=== PATIENT | male | born 1935 | race Caucasian/White ===

== ENCOUNTER 2017-01-16 04:37 | Inpatient (IN) | payer MEDICARE, BC ==
--- NOTE | ~2017-01-16 | HP ---
History And Physical [address] [place]. [address] NAME: ANNY LYMAN : 37 STATUS : ADM IN [facility]#: [id number] AGE: 81 ADM/REG DATE : 01/16/17 MR#: [id number] REPORT SERV DATE: 01/16/17 DICTATED BY: ABRAHAM TOMAS DATE: 01/16/17 REPORT STATUS : Draft TRANSCRIBED BY: MODL DATE: 01/16/17 DATE OF ADMISSION: 01/16/2017 CHIEF COMPLAINT: Chest pain. HISTORY OF PRESENT ILLNESS: This is an 81-year-old gentleman with history of coronary artery disease, hypertension, hyperlipidemia, and chronic kidney disease presenting with chest pain. The patient reports that the chest pain is actually a feeling of flutters and palpitations. The patient does have baseline coronary artery disease with angina, but since about a week ago the patient started having funny sensations with palpitations and flutters. The patient follows with Dr. Rojas and he actually went in to see him and had an echocardiogram done at the office. The patient has a followup appointment with Dr. Rojas on 01/21/2017, which is five days from now, but the patient was called by the Cardiology office and was told that his ejection fraction had went down to 35% whereas his baseline has been 50%. The patient was prescribed to take Lasix and again is to have a followup appointment with Dr. Rojas in the next five days. Upon further questioning, the patient does report that he has been experiencing increasing bilateral lower extremity edema without acute shortness of breath, but then again the patient is not very mobile and he has not exerted himself enough to know if he would be short of breath with exertion. In any case, the patient decided to come to the ER for further evaluation and care as he had another episode of palpitations and flutters that lasted a lot longer this time. In the ER, the patient was found to be afebrile and hemodynamically stable. EKG in the ER did show the patient was in an AFib, which is a new onset for him. Lab evaluation in the ER was fairly benign except for a creatinine of 1.78. Internal Medicine consultation was requested for admission of the patient for further evaluation and care. REVIEW OF SYSTEMS: The patient denies any fevers or chills. Also, 14-point review of systems reviewed and negative other than mentioned above. MEDICATIONS: The list is still pending at this time. PAST MEDICAL HISTORY: 1. Coronary artery disease with drug-eluting stent placed in the past. 2. Hypertension. 3. Hyperlipidemia. 4. Chronic kidney disease, which apparently is a new working diagnosis. 5. Newly diagnosed congestive heart failure with an echocardiogram that was done in the office last week. PAST SURGICAL HISTORY: 1. Left knee replacement. 2. Breast lumpectomy. FAMILY HISTORY: Heart diseases. History And Physical [address] [address] NAME: ANNY LYMAN : 37 STATUS : ADM IN [facility]#: [id number] AGE: 81 ADM/REG DATE : 01/16/17 MR#: [id number] REPORT SERV DATE: 01/16/17 DICTATED BY: ABRAHAM TOMAS DATE: 01/16/17 REPORT STATUS : Draft TRANSCRIBED BY: KRIS DATE: 01/16/17 SOCIAL HISTORY: The patient does not smoke, drink alcohol, or use any illicit drugs. The patient lives at home with his . The patient has been active in the past, but he now lives a fairly sedentary life. PHYSICAL EXAMINATION: VITAL SIGNS: Temperature 97.6, blood pressure 119/70, pulse 91, respiratory rate is 18, saturating 98% on room air. GENERAL: The patient is alert and oriented x3 with no focal neurologic deficits. The patient is awake, does not appear to be in acute distress, and he is cooperative. NECK: No JVD. No lymphadenopathy. Normal thyroid. CHEST: No midline sternotomy scar and no tenderness to palpation. LUNGS: Clear to auscultation bilaterally with normal respiratory effort on room air. CARDIOVASCULAR: The patient has irregularly irregular rate and rhythm, but otherwise no murmurs, rubs, or gallops. PMI is nondisplaced. ABDOMEN: Soft, nontender, with active bowel sounds and no organomegaly. EXTREMITIES: The patient has 2+ bilateral lower extremity edema. Otherwise, normal distal pulses and no calf tenderness. SKIN: Clean, dry, warm, and intact. LABORATORY DATA: Sodium is 139, potassium 4.3, chloride 104, BUN 15, creatinine 1.78, glucose 131, calcium 9.6, magnesium 2.0. White blood cell count is 8.4, hemoglobin 12.6, platelets 236. INR is 1.2. Troponin is less than 0.02. EKG is personally interpreted and it shows an AFib in a controlled rhythm with ventricular rate around 90s. Otherwise, no acute ischemic changes. ASSESSMENT: This is an 81-year-old gentleman with history of coronary artery disease, hypertension, hyperlipidemia, and chronic kidney disease, now presenting with new-onset atrial fibrillation and systolic congestive heart failure exacerbation. 1. New-onset atrial fibrillation, rate controlled currently. 2. Systolic congestive heart failure, with recent echocardiogram done as an outpatient showing ejection fraction of 35%. The patient is in mild exacerbation with bilateral lower extremity edema. 3. Chronic kidney disease, apparently a working diagnosis. The patient does not have an established baseline, but his creatinine today is 1.78. 4. Hypertension. 5. Hyperlipidemia. 6. Coronary artery disease. PLAN: My plan is to admit the patient under telemetry monitoring. The patient will be given IV Lasix diuresis. In's and out's will be closely monitored as well as daily weights and renal function. For the AFib, since he is already rate controlled, I will simply monitor him. I will check TSH and serial troponins, and I will continue the heparin drip that was already started in the ER. For chronic kidney disease, I will monitor his renal function on daily basis. Otherwise, for the rest of stable past medical conditions including hypertension, hyperlipidemia, et al., I will continue home medications. Standard DVT History And Physical [address] [address] NAME: ANNY LYMAN : 37 STATUS : ADM IN [facility]#: [id number] AGE: 81 ADM/REG DATE : 01/16/17 MR#: [id number] REPORT SERV DATE: 01/16/17 DICTATED BY: ABRAHAM TOMAS DATE: 01/16/17 REPORT STATUS : Draft TRANSCRIBED BY: MODAntwon DATE: 01/16/17 prophylaxis. The patient is full code at this time. [facility]/KRIS Abraham Tomas MD / [id number] CC: MD AYAN Rodriguez CHELSEY
--- NOTE | ~2017-01-16 | DS ---
Discharge Summary [facility] [address] [facility] [place]. [address] NAME: ANNY LYMAN : 37 STATUS : DIS IN PAT#: [id number] AGE: 81 ADM/REG DATE : 01/16/17 MR#: [id number] REPORT SERV DATE: 01/23/17 DICTATED BY: JR. BARRIOS WILLIAM JOHN DATE: 01/22/17 REPORT STATUS : Draft TRANSCRIBED BY: MODL DATE: 01/22/17 ADMISSION DATE: 01/16/2017 DISCHARGE DATE: 01/22/2017 DISCHARGE DIAGNOSES: Include: 1. New onset atrial fibrillation. 2. Acute systolic heart failure with ejection fraction of 35%. 3. Acute kidney injury with chronic kidney disease. 4. Hypertension. 5. Hyperlipidemia. 6. History of coronary artery disease. 7. Obesity with body mass index of 32.2. OPERATIONS/PROCEDURES AND TREATMENTS: Include: 1. Chest x-ray done 01/16/2017 which showed subpleural pulmonary fibrosis with no superimposed airspace issues. 2. Cardiac catheterization done 01/21/2017 showed left ventricular end-diastolic pressure of 16 with an ejection fraction of 35%, widely patent LAD, normal left main circumflex and right coronary arteries. 3. Transesophageal echocardiogram with cardioversion done 01/21/[address] Buckley. Echocardiogram showed an ejection fraction of 40% and mildly decreased right ventricular systolic function, mild atrial and tricuspid regurgitation, trace aortic and pulmonic regurgitation. No thrombus in the left atrial appendage with successful cardioversion and reversion to sinus rhythm. DISCHARGE MEDICATIONS: Include: 1. Aspirin 81 mg orally daily. 2. Coreg 6.25 mg orally twice a day. 3. Coenzyme Q 100 mg orally daily. 4. Lovenox 100 mg subcu q.12 hours until INR is greater than 2. 5. Lasix 20 mg orally daily. 6. [place]-3 fatty acid 1200 mg orally daily. 7. Nexium 40 mg orally daily. 8. Coumadin 5 mg orally daily. 9. Nitroglycerin 0.4 mg sublingually as needed. 10.Amiodarone 400 mg orally twice a day for a week, then 200 mg twice a day for two weeks, then 200 mg daily. CONSULTING PHYSICIANS: Include Dr. Bebo Paula of Nephrology and Dr. Baron Rodriguez of Cardiology. HOSPITAL COURSE: The patient is an 81-year-old gentleman who presented to the emergency room 01/16/2017 with complaint of chest pain. The chest pain actually felt like flutters and palpitations. He does have a history of coronary disease with angina but started having funny sensations and flutter starting one week prior. He follows with Dr. Rojas, went to see him, and had an echocardiogram done in his office. He has a followup appointment with Discharge Summary [address] [address] NAME: ANNY LYMAN : 37 STATUS : DIS IN PAT#: [id number] AGE: 81 ADM/REG DATE : 01/16/17 MR#: [id number] REPORT SERV DATE: 01/23/17 DICTATED BY: JR. BARRIOS WILLIAM JOHN DATE: 01/22/17 REPORT STATUS : Draft TRANSCRIBED BY: KRIS DATE: 01/22/17 Dr. Rojas on 01/21/2017, but apparently, the echo showed an ejection fraction of 35% with a baseline of 50%. He was given Lasix without success and subsequently presented to the emergency room. PHYSICAL EXAMINATION: VITAL SIGNS: On initial exam, his temperature 97.6, blood pressure 119/70, heart rate 91, and respiratory rate of 18. LUNGS: Clear to auscultation. HEART: Irregularly irregular. No murmur, gallop, or rub. Point of maximal impulse is nondisplaced. EXTREMITIES: He had 2+ bilateral pitting edema. BUN and creatinine were 15 and 1.8. INR was 1.2, and troponin was 0.02. EKG showed atrial fibrillation with controlled ventricular response without acute ST-T wave changes. The patient was admitted to the hospital for new onset atrial fibrillation. He was seen in consultation by Dr. Rodriguez of Cardiology. He was placed on IV heparin, IV Lasix, and underwent cardiac catheterization without finding of critical coronary disease. The patient's diuretics were gradually transitioned to oral. He did have some increased creatinine prior to the cardiac catheterization, was actually seen by Nephrology. The patient slowly improved his renal function and underwent catheterization as detailed above. The patient was placed on amiodarone eventually and subsequently had a transesophageal echocardiogram with precluding a clot with cardioversion. He continued to improve and was felt to be stable for discharge on 01/22/2017. He will be placed on Lovenox as a bridge for the Coumadin and have followup INR at [facility] on Wednesday and will also follow up with Nephrology as well as his primary care provider, Dr. Delma Ramirez, in one week with a BMP. DISCHARGED DIET: 2 g sodium diet with 1.8 L fluid restriction. ACTIVITY: As tolerated. For discharge exam and laboratory, please see daily progress note. This discharge took 38 minutes for patient encounter, coordination of care, and documentation. JEN/KRIS Baron Barrios Jr, MD / [id number] CC: Discharge Summary [address] [address] NAME: ANNY LYMAN : 37 STATUS : DIS IN PAT#: [id number] AGE: 81 ADM/REG DATE : 01/16/17 MR#: [id number] REPORT SERV DATE: 01/23/17 DICTATED BY: JR. BARRIOS WILLIAM JOHN DATE: 01/22/17 REPORT STATUS : Draft TRANSCRIBED BY: KRIS DATE: 01/22/17 Baron Barrios Jr, MD Chelsey Height
--- NOTE | ~2017-01-16 | CN ---
Consultation Report [facility] [address] [place]. [address] NAME: ANNY LYMAN : 37 STATUS : ADM IN [facility]#: [id number] AGE: 81 ADM/REG DATE : 01/16/17 MR#: [id number] REPORT SERV DATE: 01/16/17 DICTATED BY: BARON ESCOBAR DATE: 01/16/17 REPORT STATUS : Draft TRANSCRIBED BY: MODL DATE: 01/16/17 CARDIOVASCULAR CONSULTATION DATE OF CONSULTATION: 01/16/2017 CHIEF COMPLAINT: Congestive heart failure. HISTORY OF PRESENT ILLNESS: The patient is an 81-year-old patient of my partner, Dr. Barry Rojas. He has a history of ischemic coronary disease with prior LAD stent in 2010. He had a cardiac catheterization about two years ago, which showed patent LAD stent and an EF of 55%. Over the last several weeks to months, he has had progressive symptoms of bilateral lower extremity edema associated with increased dyspnea and shortness of breath. He had an outpatient echocardiogram about four days ago, which showed a new decline in his left ventricular ejection fraction from 55% to 35% with evidence of anteroseptal hypokinesis. He was admitted with worsening symptoms of dyspnea through the emergency room. An EKG showed atrial fibrillation with a rate of 80 to 90 beats per minute. This is a new diagnosis. Laboratory studies were notable for a creatinine of 1.78 and a BNP of 368. The patient has not had much chest discomfort. He has not had any syncope or presyncope. PAST MEDICAL HISTORY: 1. Hypertension. 2. Hypercholesterolemia. 3. Coronary artery disease with previous LAD stenting. 4. Chronic kidney disease. 5. History of knee replacement surgery. SOCIAL HISTORY: He does not smoke or drink alcohol. FAMILY HISTORY: There is a family history of early coronary artery disease. REVIEW OF SYSTEMS: A complete review of systems was obtained, which is negative in detail except as mentioned above in the HPI. PHYSICAL EXAMINATION: BLOOD PRESSURE: 120/70. PULSE: 90 and irregular. RESPIRATIONS: 14. GENERAL: Comfortable in no acute distress. HEENT: Anicteric. No xanthelasma. Lips without cyanosis. NECK: No JVD. Carotids 2+ and symmetric. No carotid bruits. LUNGS: There are crackles at both bases bilaterally. No wheezes. COR: Irregularly irregular. Normal S1 and S2. No murmurs. No rubs. ABD: Soft, nontender, nondistended. Normal bowel sounds. No abdominal bruits. EXT: There is 2+ bilateral lower extremity edema to the knees. Consultation Report [facility] [address] [place]. [address] NAME: ANNY LYMAN : 37 STATUS : ADM IN PAT#: [id number] AGE: 81 ADM/REG DATE : 01/16/17 MR#: [id number] REPORT SERV DATE: 01/16/17 DICTATED BY: BARON ESCOBAR DATE: 01/16/17 REPORT STATUS : Draft TRANSCRIBED BY: KRIS DATE: 01/16/17 SKIN: Warm. Dry. No venous stasis changes. MS: No kyphosis. NEURO/PSYCH: Oriented x3. No anxiety or depression. LABORATORY STUDIES: Potassium of 4.3. Creatinine of 1.78. Hematocrit of 38.5. Troponin of less than 0.02. BNP of 368. EKG: A 12-lead EKG shows atrial fibrillation, rate of 88 beats per minute. Poor R-wave progression. Nonspecific T-wave abnormalities noted. Inferior Q-waves noted. IMPRESSION: Mr. Lyman is an 81-year-old man with a history of prior LAD stenting, now presenting with new atrial fibrillation and new acute on chronic systolic congestive heart failure with a decline in his ejection fraction from 55% to 35% with new anteroseptal hypokinesis noted. I have recommended continuing IV heparin for now. He will receive aspirin 81 mg daily. We will diurese him with IV Lasix. He has a prior intolerance to multiple statins due to myalgias. We will plan for cardiac catheterization on Wednesday with possible percutaneous coronary intervention given his new LV dysfunction, new wall motion abnormality, and symptoms of dyspnea and shortness of breath with prior ischemic coronary disease. If his cardiac catheterization is normal, we will consider a change to Eliquis and perhaps a ANDRES cardioversion the following day. I am not certain whether he will need long-term anti- arrhythmics, but at least for the short term. I will put him on p.o. amiodarone. [facility]ANDT/KRIS Baron Escobar M.D. / [id number] CC: MD AYAN Rodriguez CHELSEY
--- NOTE | ~2017-01-16 | OP ---
Record Of Operation [facility] [address] [place]. [address] NAME: ANNY LYMAN : 37 STATUS : ADM IN [facility]#: [id number] AGE: 81 ADM/REG DATE : 01/16/17 MR#: [id number] REPORT SERV DATE: 01/21/17 DICTATED BY: FAREED SOLORIO DATE: 01/21/17 REPORT STATUS : Draft TRANSCRIBED BY: MODL DATE: 01/21/17 DATE OF PROCEDURE: 01/21/2017 PROCEDURE INDICATION: Atrial fibrillation. PROCEDURE TYPE: Elective ANDRES cardioversion. REFERRING PROVIDER: Barry Rojas M.D. PROCEDURE DESCRIPTION: All questions were answered and informed consent was obtained. Upon successful sedation per Anesthesia, the transesophageal probe was inserted without complication. The salient echocardiographic windows were obtained, with particular attention to the left atrial appendage. Upon clearance of the appendage, the patient was shocked with 200 joules x1 synchronized. The patient successfully converted from atrial fibrillation to sinus rhythm at 65 beats per minute. There were no complications from the procedure. ECHOCARDIOGRAPHIC SUMMARY: 1. Moderately decreased left ventricular systolic function, with an estimated ejection fraction of 40%. 2. Mildly decreased right ventricular systolic function. 3. Mild mitral and tricuspid regurgitation on color Doppler assessment. 4. Trace aortic and pulmonic regurgitation on color Doppler assessment. 5. No thrombus in the left atrial appendage at the time of the study, with decreased velocities (peak approximately 20 cm/sec). VR/KRIS Fareed Solorio MD / [id number] CC: Baron Barrios Jr, MD HEIGHT, CHELSEY
--- NOTE | ~2017-01-16 | CN ---
Consultation Report [facility] [address] [place]. [address] NAME: ANNY LYMAN : 37 STATUS : ADM IN [facility]#: [id number] AGE: 81 ADM/REG DATE : 01/16/17 MR#: [id number] REPORT SERV DATE: 01/17/17 DICTATED BY: STU DE LA CRUZ DATE: 01/17/17 REPORT STATUS : Draft TRANSCRIBED BY: MODL DATE: 01/17/17 NEPHROLOGY CONSULT DATE OF CONSULTATION: 01/17/2017 REASON FOR CONSULT: Chronic kidney disease with acute kidney injury, the patient needs arteriogram. HISTORY OF PRESENT ILLNESS: Mr. Lyman is a very pleasant 81-year-old white male with no previous Nephrology evaluation. Reviewing records shows that his baseline creatinine has previously been around 1.1 to 1.2 since 10/2010. The most recent labs available prior to this admission was a creatinine of 1.1 in 04/2015. He presented yesterday with chest pain and low blood pressure, was found to have new onset atrial fibrillation. Creatinine on presentation was 1.8. Echo has shown an EF of 35% with mild LVH and RVSP of 44 mmHg. He has some anteroseptal hypokinesis. He was given Lasix 40 mg IV q.8 h. and earlier today was found to have a creatinine up to 1.9. He has had 3850 mL of urine output since admission, and had a blood pressure as low as 88/54 last night around 11 p.m. He is scheduled for cardiac catheterization later this week when renal function improves. PAST MEDICAL HISTORY: 1. Chronic kidney disease, baseline creatinine 1.1 to 1.2. 2. Atherosclerotic cardiovascular disease with PCI to the LAD, 2010 with EF 35%. 3. Hypertension, on ARB. 4. Hyperlipidemia. 5. History of left knee replacement without heavy use of OTC NSAIDs. 6. Rheumatoid arthritis followed by Dr. Casiano at [place], intolerant of biologics. MEDICATIONS: On admission included, 1. Aspirin. 2. Baclofen. 3. Coreg 25 mg b.i.d. 4. CoQ10. 5. Nexium. 6. Flaxseed oil. 7. Fish oil. 8. Diovan 80 mg daily. FAMILY HISTORY: Noncontributory. SOCIAL HISTORY: Nonsmoker. , lives in [facility] and is retired arc welder apprentice. REVIEW OF SYSTEMS: Significant for events as per HPI. No previous prostate surgery. Consultation Report [address] [place]. [address] NAME: ANNY LYMAN : 37 STATUS : ADM IN [facility]#: [id number] AGE: 81 ADM/REG DATE : 01/16/17 MR#: [id number] REPORT SERV DATE: 01/17/17 DICTATED BY: STU DE LA CRUZ DATE: 01/17/17 REPORT STATUS : Draft TRANSCRIBED BY: KRIS DATE: 01/17/17 PHYSICAL EXAMINATION: VITAL SIGNS: Temperature 98.9, pulse 95, respirations 20, blood pressure 93/56, 98% saturation on room air. 2058 mL of intake with 3850 mL of output. GENERAL: He is a very pleasant elderly white male who is awake, alert, oriented, and cooperative with the exam. NEURO: Nonfocal. He is in no distress. Ambulating from the bathroom, accompanied by his supportive . Good historian. HEENT: Sclerae without icterus. Conjunctivae not injected. Oropharynx is clear. Mucous membranes are dry. NECK: No JVD. No dyspnea. Bilateral rhonchi on room air. HEART: Rhythm is irregular, rate controlled. 2/6 murmur. ABDOMEN: Obese, soft, nontender, and nondistended. Umbilical hernia is noted. He has had previous right breast surgery. EXTREMITIES: With 1+ bilateral lower extremity edema. Varicose veins are noted. : Deferred. There is no Pinto catheter. PSYCH: Mood and affect are appropriate. MUSCULOSKELETAL: Shows no active process. SKIN: Shows no rash. LABORATORY DATA: Sodium 138, potassium 3.8, bicarb 27, BUN 21, creatinine 1.9. GFR 32, calcium 9.5, magnesium 2.0, albumin 3.6. Liver function test normal. BNP 344. White count 9400 with 4% eosinophilia, hemoglobin 12, platelets 241,000. INR 1.2. ASSESSMENT AND PLAN: Mr. Lyman has chronic kidney disease, baseline creatinine previously 1.1 to 1.2, has now developed worsened renal function in the setting of new onset atrial fibrillation, relative hypotension, coronary artery disease with previous stenting, EF 35%, and rheumatoid arthritis. Likely, his acute kidney injury is multifactorial related to over diuresis and acute tubular necrosis from relative hypotension? Hold ARB and Lasix. We will gently hydrate watching volume status closely. Check bladder scan and urine sodium. Family updated in the room, I agree with treatment plan. Watch labs, supportive care. His baseline creatinine unclear at this point. If renal function improves, would have a low threshold for proceeding with cardiac catheterization later in the week. Group will follow with you. Appreciate consult. JULIANO/KRIS Stu De La Cruz M.D. / [id number] Consultation Report [address] [address] NAME: ANNY LYMAN : 37 STATUS : ADM IN PAT#: [id number] AGE: 81 ADM/REG DATE : 01/16/17 MR#: [id number] REPORT SERV DATE: 01/17/17 DICTATED BY: STU DE LA CRUZ DATE: 01/17/17 REPORT STATUS : Draft TRANSCRIBED BY: KRIS DATE: 01/17/17 CC: MD AYAN Rodriguez CHELSEY
[~2017-01-16 04:37] MED LIST: ASA5GR PO; ASAB PO; ASCRIPTIN PO; CIP5 PO; CO Q-10100 MG PO; COREG; COREG12 PO; COREG25 PO; DIOV160 PO; DIOV80 PO; FISH OIL1200 MG PO; FLAXSEED OIL1000 MG PO; NEXIUM40 PO; NITROSTAT0.4 MG SL; PLAVIX PO; PRAVAC PO; PRAVASTATIN; ROBAXIN
[2017-01-16 04:41] LABS: BASOPHILS 0.2 %; BASOPHILS ABSOLUTE 0.02 10/3/uL (0.0-0.16); EOSINOPHILS 3.5 %; EOSINOPHILS ABSOLUTE 0.29 10/3/uL (0.0-0.53); ER CBC TAT 0 Hrs 05 Mins; HEMATOCRIT 38.5 % (40.0-51.0); HEMOGLOBIN 12.6 g/dL (13.6-17.8); IMMATURE GRANULOCYTES 0.2 %; IMMATURE GRANULOCYTES ABSOLUTE 0.02 10/3/uL (0.0-0.11); LYMPHOCYTES 19.7 %; LYMPHOCYTES ABSOLUTE 1.65 10/3/uL (0.67-4.30); MANUAL DIFF NO %; MEAN CORPUS HGB CONC 32.7 g/dL (32.0-36.0); MEAN CORPUSCULAR HEMOGLOB 29.5 pg (26.0-34.0); MEAN CORPUSCULAR VOLUME 90.2 fL (80-100); MEAN PLATELET VOLUME 10.7 fL (9.2-13.0); MONOCYTES 14.1 %; MONOCYTES ABSOLUTE 1.18 10/3/uL (0.21-1.20); NEUTROPHILS 62.3 %; NEUTROPHILS ABSOLUTE 5.23 10/3/uL (2.02-8.40); PLATELET COUNT 236 10/3/uL (150-400); RBC DISTRIBUTION WIDTH 14.5 % (12.0-16.0); RED CELL COUNT 4.27 10/6/uL (4.7-6.1); WHITE BLOOD CELLS 8.4 10/3/uL (4.5-10.5)
[2017-01-16 04:47] LABS: INTERNATIONAL NORMAL RATI 1.2 UNITS (-); PARTIAL THROMBO TIME 26.9 SEC (22.5-37.2); PROTIME (NOT ORD) 14.9 SEC (12.0-14.5)
[2017-01-16 04:59] LABS: BUN (BLOOD UREA NITROGEN) 15 MG/DL (6-23); CALCIUM, SERUM 9.6 MG/DL (8.5-10.4); CHEST PAIN PROFILE TAT 0 Hrs 23 Mins; CHLORIDE, SERUM 104 MMOL/L (96-112); CO2 (CARBON DIOXIDE) 27 MMOL/L (24-34); CREATININE 1.78 MG/DL (0.70-1.30); GFR AFRICAN AMERICAN 41 ML/MIN (>=60); GFR NON AFRICAN AMERICAN 35 ML/MIN (>=60); GLUCOSE, SERUM 131 MG/DL (60-99); POTASSIUM, SERUM 4.3 MMOL/L (3.5-5.3); SODIUM, SERUM 139 MMOL/L (135-148); TROPONIN I <0.02 NG/ML (<0.05)
[2017-01-16 05:43] LABS: ALBUMIN 3.6 G/DL (3.5-5.0); ALKALINE PHOSPHATASE 65 U/L (45-117); DIRECT BILIRUBIN 0.1 MG/DL (0.0-0.4); INDIRECT BILIRUBIN(NOT ORDER) 0.5 MG/DL (0.1-0.9); SGOT(AST) 17 U/L (5-40); SGPT(ALT) 23 U/L (5-65); TOTAL BILIRUBIN 0.6 MG/DL (0-1.2); TOTAL PROTEIN 7.3 G/DL (6.0-8.5)
[2017-01-16] MEDS ORDERED: LIOR10 PO (08:46)
[2017-01-17 03:37] LABS: BASOPHILS 0.3 %; BASOPHILS ABSOLUTE 0.03 10/3/uL (0.0-0.16); EOSINOPHILS 4.4 %; EOSINOPHILS ABSOLUTE 0.41 10/3/uL (0.0-0.53); HEMATOCRIT 36.6 % (40.0-51.0); IMMATURE GRANULOCYTES 0.2 %; IMMATURE GRANULOCYTES ABSOLUTE 0.02 10/3/uL (0.0-0.11); LYMPHOCYTES 23.9 %; LYMPHOCYTES ABSOLUTE 2.24 10/3/uL (0.67-4.30); MEAN CORPUS HGB CONC 32.8 g/dL (32.0-36.0); MEAN CORPUSCULAR HEMOGLOB 29.5 pg (26.0-34.0); MEAN CORPUSCULAR VOLUME 89.9 fL (80-100); MEAN PLATELET VOLUME 11.2 fL (9.2-13.0); MONOCYTES 16.5 %; MONOCYTES ABSOLUTE 1.54 10/3/uL (0.21-1.20); NEUTROPHILS 54.7 %; NEUTROPHILS ABSOLUTE 5.12 10/3/uL (2.02-8.40); PLATELET COUNT 241 10/3/uL (150-400); RBC DISTRIBUTION WIDTH 14.5 % (12.0-16.0); RED CELL COUNT 4.07 10/6/uL (4.7-6.1); WHITE BLOOD CELLS 9.4 10/3/uL (4.5-10.5)
[2017-01-17 03:42] LABS: MANUAL DIFF NO %
[2017-01-17 03:49] LABS: BUN (BLOOD UREA NITROGEN) 21 MG/DL (6-23); CALCIUM, SERUM 9.5 MG/DL (8.5-10.4); CHLORIDE, SERUM 103 MMOL/L (96-112); CO2 (CARBON DIOXIDE) 27 MMOL/L (24-34); CREATININE 1.94 MG/DL (0.70-1.30); GFR AFRICAN AMERICAN 37 ML/MIN (>=60); GFR NON AFRICAN AMERICAN 32 ML/MIN (>=60); GLUCOSE, SERUM 136 MG/DL (60-99); POTASSIUM, SERUM 3.8 MMOL/L (3.5-5.3); SODIUM, SERUM 138 MMOL/L (135-148)
[2017-01-18 04:57] LABS: BASOPHILS 0.4 %; BASOPHILS ABSOLUTE 0.04 10/3/uL (0.0-0.16); EOSINOPHILS 3.6 %; EOSINOPHILS ABSOLUTE 0.36 10/3/uL (0.0-0.53); HEMOGLOBIN 12.7 g/dL (13.6-17.8); IMMATURE GRANULOCYTES 0.3 %; IMMATURE GRANULOCYTES ABSOLUTE 0.03 10/3/uL (0.0-0.11); LYMPHOCYTES 29.9 %; MEAN CORPUS HGB CONC 33.4 g/dL (32.0-36.0); MEAN CORPUSCULAR HEMOGLOB 29.8 pg (26.0-34.0); MEAN CORPUSCULAR VOLUME 89.2 fL (80-100); MEAN PLATELET VOLUME 11.3 fL (9.2-13.0); MONOCYTES 14.3 %; MONOCYTES ABSOLUTE 1.44 10/3/uL (0.21-1.20); NEUTROPHILS 51.5 %; NEUTROPHILS ABSOLUTE 5.18 10/3/uL (2.02-8.40); PLATELET COUNT 268 10/3/uL (150-400); RBC DISTRIBUTION WIDTH 14.5 % (12.0-16.0); RED CELL COUNT 4.26 10/6/uL (4.7-6.1); WHITE BLOOD CELLS 10.1 10/3/uL (4.5-10.5)
[2017-01-18 04:58] LABS: MANUAL DIFF NO %
[2017-01-18 04:59] LABS: PARTIAL THROMBO TIME 68.9 SEC (22.5-37.2)
[2017-01-18 05:01] LABS: BUN (BLOOD UREA NITROGEN) 24 MG/DL (6-23); CALCIUM, SERUM 9.2 MG/DL (8.5-10.4); CHLORIDE, SERUM 102 MMOL/L (96-112); CO2 (CARBON DIOXIDE) 26 MMOL/L (24-34); CREATININE 1.95 MG/DL (0.70-1.30); GFR AFRICAN AMERICAN 37 ML/MIN (>=60); GFR NON AFRICAN AMERICAN 32 ML/MIN (>=60); GLUCOSE, SERUM 138 MG/DL (60-99); POTASSIUM, SERUM 4.1 MMOL/L (3.5-5.3); SODIUM, SERUM 135 MMOL/L (135-148)
[2017-01-18 18:19] LABS: ASCORBIC ACID (UR NOT ORDER) NEG (NEG); BILIRUBIN, URINE NEGATIVE (NEG); KETONE, URINE NEGATIVE (NEG); LEUKOCYTE ESTERASE(NOT OR LARGE (NEG); WBC (NOT ORDERED) (RFLEX) 7 (0-5)
[2017-01-19 05:33] LABS: BASOPHILS 0.2 %; BASOPHILS ABSOLUTE 0.02 10/3/uL (0.0-0.16); EOSINOPHILS 3.7 %; EOSINOPHILS ABSOLUTE 0.35 10/3/uL (0.0-0.53); HEMATOCRIT 35.5 % (40.0-51.0); HEMOGLOBIN 11.8 g/dL (13.6-17.8); IMMATURE GRANULOCYTES 0.3 %; IMMATURE GRANULOCYTES ABSOLUTE 0.03 10/3/uL (0.0-0.11); LYMPHOCYTES 22.9 %; LYMPHOCYTES ABSOLUTE 2.14 10/3/uL (0.67-4.30); MEAN CORPUS HGB CONC 33.2 g/dL (32.0-36.0); MEAN CORPUSCULAR VOLUME 90.3 fL (80-100); MEAN PLATELET VOLUME 10.9 fL (9.2-13.0); MONOCYTES 16.3 %; MONOCYTES ABSOLUTE 1.52 10/3/uL (0.21-1.20); NEUTROPHILS 56.6 %; NEUTROPHILS ABSOLUTE 5.28 10/3/uL (2.02-8.40); PLATELET COUNT 214 10/3/uL (150-400); RBC DISTRIBUTION WIDTH 14.4 % (12.0-16.0); RED CELL COUNT 3.93 10/6/uL (4.7-6.1); WHITE BLOOD CELLS 9.3 10/3/uL (4.5-10.5)
[2017-01-19 05:35] LABS: MANUAL DIFF NO %
[2017-01-19 05:42] LABS: BUN (BLOOD UREA NITROGEN) 21 MG/DL (6-23); CHLORIDE, SERUM 106 MMOL/L (96-112); CO2 (CARBON DIOXIDE) 25 MMOL/L (24-34); CREATININE 1.48 MG/DL (0.70-1.30); GFR AFRICAN AMERICAN 51 ML/MIN (>=60); GFR NON AFRICAN AMERICAN 44 ML/MIN (>=60); GLUCOSE, SERUM 122 MG/DL (60-99); POTASSIUM, SERUM 3.8 MMOL/L (3.5-5.3); SODIUM, SERUM 140 MMOL/L (135-148)
[2017-01-20 06:21] LABS: BASOPHILS 0.3 %; BASOPHILS ABSOLUTE 0.03 10/3/uL (0.0-0.16); EOSINOPHILS 2.8 %; EOSINOPHILS ABSOLUTE 0.26 10/3/uL (0.0-0.53); HEMATOCRIT 34.3 % (40.0-51.0); HEMOGLOBIN 11.2 g/dL (13.6-17.8); IMMATURE GRANULOCYTES 0.2 %; IMMATURE GRANULOCYTES ABSOLUTE 0.02 10/3/uL (0.0-0.11); LYMPHOCYTES 26.8 %; LYMPHOCYTES ABSOLUTE 2.52 10/3/uL (0.67-4.30); MEAN CORPUS HGB CONC 32.7 g/dL (32.0-36.0); MEAN CORPUSCULAR HEMOGLOB 29.9 pg (26.0-34.0); MEAN CORPUSCULAR VOLUME 91.5 fL (80-100); MEAN PLATELET VOLUME 11.3 fL (9.2-13.0); MONOCYTES 18.7 %; MONOCYTES ABSOLUTE 1.76 10/3/uL (0.21-1.20); NEUTROPHILS 51.2 %; NEUTROPHILS ABSOLUTE 4.82 10/3/uL (2.02-8.40); PLATELET COUNT 187 10/3/uL (150-400); RBC DISTRIBUTION WIDTH 14.7 % (12.0-16.0); RED CELL COUNT 3.75 10/6/uL (4.7-6.1); WHITE BLOOD CELLS 9.4 10/3/uL (4.5-10.5)
[2017-01-20 06:24] LABS: MANUAL DIFF NO %
[2017-01-20 06:26] LABS: PARTIAL THROMBO TIME 70.1 SEC (22.5-37.2)
[2017-01-20 06:35] LABS: ALBUMIN 3.1 G/DL (3.5-5.0); BUN (BLOOD UREA NITROGEN) 19 MG/DL (6-23); CALCIUM, SERUM 8.9 MG/DL (8.5-10.4); CHLORIDE, SERUM 107 MMOL/L (96-112); CO2 (CARBON DIOXIDE) 25 MMOL/L (24-34); CREATININE 1.42 MG/DL (0.70-1.30); GFR AFRICAN AMERICAN 54 ML/MIN (>=60); GFR NON AFRICAN AMERICAN 46 ML/MIN (>=60); GLUCOSE, SERUM 118 MG/DL (60-99); SODIUM, SERUM 138 MMOL/L (135-148)
[2017-01-20 08:40] LABS: CHOL/HDL RATIO(NOT ORDER) 3.2 (0-5); CHOLESTEROL 134 MG/DL (< 200); LDL CHOLESTEROL 81 MG/DL (< 130); NON-HDL CHOLESTEROL 92 MG/DL (< 160); TRIGLYCERIDE 56 MG/DL (< 150)
[2017-01-20 08:41] LABS: HDL CHOLESTEROL 42 MG/DL (> 39)
[2017-01-20 09:43] LABS: INTERNATIONAL NORMAL RATI 1.2 UNITS (-); PROTIME (NOT ORD) 15.4 SEC (12.0-14.5)
[2017-01-21 05:18] LABS: BASOPHILS 0.4 %; BASOPHILS ABSOLUTE 0.04 10/3/uL (0.0-0.16); EOSINOPHILS 2.7 %; EOSINOPHILS ABSOLUTE 0.25 10/3/uL (0.0-0.53); HEMATOCRIT 34.8 % (40.0-51.0); HEMOGLOBIN 11.3 g/dL (13.6-17.8); IMMATURE GRANULOCYTES 0.3 %; IMMATURE GRANULOCYTES ABSOLUTE 0.03 10/3/uL (0.0-0.11); LYMPHOCYTES 24.6 %; LYMPHOCYTES ABSOLUTE 2.26 10/3/uL (0.67-4.30); MEAN CORPUS HGB CONC 32.5 g/dL (32.0-36.0); MEAN CORPUSCULAR HEMOGLOB 29.7 pg (26.0-34.0); MEAN CORPUSCULAR VOLUME 91.3 fL (80-100); MEAN PLATELET VOLUME 11.5 fL (9.2-13.0); MONOCYTES 16.5 %; MONOCYTES ABSOLUTE 1.52 10/3/uL (0.21-1.20); NEUTROPHILS 55.5 %; NEUTROPHILS ABSOLUTE 5.09 10/3/uL (2.02-8.40); PLATELET COUNT 185 10/3/uL (150-400); RBC DISTRIBUTION WIDTH 14.7 % (12.0-16.0); RED CELL COUNT 3.81 10/6/uL (4.7-6.1); WHITE BLOOD CELLS 9.2 10/3/uL (4.5-10.5)
[2017-01-21 05:23] LABS: INTERNATIONAL NORMAL RATI 1.3 UNITS (-); PROTIME (NOT ORD) 15.6 SEC (12.0-14.5)
[2017-01-21 05:28] LABS: MANUAL DIFF NO %
[2017-01-21 05:44] LABS: BUN (BLOOD UREA NITROGEN) 18 MG/DL (6-23); CALCIUM, SERUM 8.5 MG/DL (8.5-10.4); CHLORIDE, SERUM 108 MMOL/L (96-112); CO2 (CARBON DIOXIDE) 24 MMOL/L (24-34); CREATININE 1.52 MG/DL (0.70-1.30); GFR AFRICAN AMERICAN 49 ML/MIN (>=60); GFR NON AFRICAN AMERICAN 43 ML/MIN (>=60); GLUCOSE, SERUM 106 MG/DL (60-99); POTASSIUM, SERUM 4.1 MMOL/L (3.5-5.3); SODIUM, SERUM 139 MMOL/L (135-148)
[2017-01-21 12:28] LABS: INTERNATIONAL NORMAL RATI 1.2 UNITS (-); PARTIAL THROMBO TIME 30.8 SEC (22.5-37.2); PROTIME (NOT ORD) 15.3 SEC (12.0-14.5)
[2017-01-21 15:01] LABS: INTERNATIONAL NORMAL RATI 1.4 UNITS (-); PROTIME (NOT ORD) 16.6 SEC (12.0-14.5)
[2017-01-21 15:02] LABS: PARTIAL THROMBO TIME 107.8 SEC (22.5-37.2)
[2017-01-22 05:26] LABS: INTERNATIONAL NORMAL RATI 1.4 UNITS (-); PROTIME (NOT ORD) 16.8 SEC (12.0-14.5)
[2017-01-22 05:40] LABS: ALBUMIN 3.3 G/DL (3.5-5.0); BUN (BLOOD UREA NITROGEN) 21 MG/DL (6-23); CALCIUM, SERUM 8.9 MG/DL (8.5-10.4); CHLORIDE, SERUM 106 MMOL/L (96-112); CO2 (CARBON DIOXIDE) 22 MMOL/L (24-34); CREATININE 1.58 MG/DL (0.70-1.30); GFR AFRICAN AMERICAN 47 ML/MIN (>=60); GFR NON AFRICAN AMERICAN 41 ML/MIN (>=60); GLUCOSE, SERUM 85 MG/DL (60-99); PHOSPHORUS, SERUM 3.2 MG/DL (2.5-4.5); POTASSIUM, SERUM 4.1 MMOL/L (3.5-5.3); SODIUM, SERUM 139 MMOL/L (135-148)
[2017-01-22] MEDS ORDERED: ASAB PO (12:18)
[2017-01-22] MEDS ORDERED: C5 PO (12:22)
[2017-01-22] MEDS ORDERED: LOVENOX1C SC (12:23)
[2017-01-22] MEDS ORDERED: L20 PO (12:23)
[2017-01-22] MEDS ORDERED: COREG6 PO (12:24)
[2017-01-22] MEDS ORDERED: PACERONE400 MG PO (12:25)
== END 2017-01-22 14:28 | disposition home or self-care (01) | DRG 286 ==
LOC: ER 04:37 → 5NO 08:17
PROVIDERS: Internal Medicine; Internal Medicine Cardiovascular Disease; Neurological Surgery; Nurse Practitioner; Nurse Practitioner Family; Specialist
PROC: 4A023N7 Measurement of Cardiac Sampling and Pressure, Left Heart, Percutaneous Approach (ICD-10-PCS; principal; 2017-01-20)
PROC: B2151ZZ Fluoroscopy of Left Heart using Low Osmolar Contrast (ICD-10-PCS; 2017-01-20)
PROC: B2111ZZ Fluoroscopy of Multiple Coronary Arteries using Low Osmolar Contrast (ICD-10-PCS; 2017-01-20)
PROC: B246ZZ4 Ultrasonography of Right and Left Heart, Transesophageal (ICD-10-PCS; 2017-01-21)
PROC: 5A2204Z Restoration of Cardiac Rhythm, Single (ICD-10-PCS; 2017-01-21)
DX: I13.0 Hypertensive heart and chronic kidney disease with heart failure and stage 1 through stage 4 chronic kidney disease, or unspecified chronic kidney disease (principal); I50.23 Acute on chronic systolic (congestive) heart failure; N17.9 Acute kidney failure, unspecified; I48.91 Unspecified atrial fibrillation; N18.9 Chronic kidney disease, unspecified; E78.5 Hyperlipidemia, unspecified; I25.10 Atherosclerotic heart disease of native coronary artery without angina pectoris; Z96.659 Presence of unspecified artificial knee joint; Z82.49 Family history of ischemic heart disease and other diseases of the circulatory system; Z95.5 Presence of coronary angioplasty implant and graft; E66.9 Obesity, unspecified; Z68.32 Body mass index [BMI] 32.0-32.9, adult
CPT/HCPCS: 71020; 80048; 80061; 80069; 80076; 81001; 83690; 83735; 83880; 84300; 84443; 84484; 85025; 85610; 85730; 87086; 92960; 93005; 93312; 93320; 93325; 93458; 96365; 99152; 99153; 99285; A9270-GY; C1769; C1894; J2250; J2405; J3010; Q9967